=== PATIENT | male | born 1940 | race Two or more races ===

== ENCOUNTER 2023-02-18 11:32 | Inpatient (IN) | payer MEDICARE, OTHER ==
[2023-02-18] VITALS (30 sets, daily range): BP systolic 99–149; BP diastolic 51–80
[~2023-02-18] VITALS: Ht 175.3 cm; Wt 97.7 kg
[2023-02-18] MEDS ORDERED: ACCU-CHEK COMFORT CURVE STRIP VI ONE (12:00)
[2023-02-18 12:43] LABS: Basophils # (auto) 0.1 10 ^3/uL (0-0.2); Basophils % (auto) 1.3 % (0.0-2.0); Eosinophils # (auto) 0.3 10 ^3/uL (0-0.8); Eosinophils % (auto) 4.2 % (0.0-7.0); Hemoglobin 14.9 g/dL (13.5-17.5); Lymphocytes # (auto) 2.1 10 ^3/uL (0.4-5.4); Mean Corpuscular Hemoglobin 31.4 pg (28.0-32.0); Mean Corpuscular Hgb Conc. 33.8 g/dL (32.0-36.0); Mean Corpuscular Volume 92.8 fL (80.0-100.0); Monocytes # (auto) 0.5 10 ^3/uL (0-1.3); Monocytes % (auto) 7.2 % (0.0-12.0); Neutrophils # (auto) 4.5 10 ^3/uL (1.6-8.6); Neutrophils % (auto) 59.3 % (37.0-80.0); Red Blood Cells 4.74 10^6/uL (4.5-5.90); Red Cell Distribution Width 13.9 % (11.8-14.3); White Blood Cell 7.5 10^3/uL (4.4-10.8)
[2023-02-18] MEDS ORDERED: PROMETHAZINE HCL 25 MG/ML 1ML IV ONE (13:00)
[2023-02-18 13:17] LABS: Potassium 3.6 mmol/L (3.5-5.1)
[2023-02-18 13:21] LABS: Albumin 3.3 g/dL (3.4-5.0); BUN/Creatinine Ratio 14.6 (10.0-20.0); Calcium 8.4 mg/dL (8.5-10.1)
[2023-02-18 13:24] LABS: Bilirubin, Total 0.7 mg/dL (0.2-1.0); Total Protein 6.3 g/dL (6.4-8.2)
[2023-02-18 13:28] LABS: Acetaminophen < 2.0 ug/mL (10-30); Salicylate < 1.7 mg/dL (2.8-20.0)
[2023-02-18] MEDS ORDERED: ROCURONIUM 10MG/ML 10ML VIAL IV ONE (13:30)
[2023-02-18] MEDS: fentaNYL Drip 2500mCg/250mlNS 250 ML IV SCH (13:30)
[2023-02-18] MEDS ORDERED: MIDAZOLAM DRIP 50 mg/50mL 50 ML IV SCH (13:30)
[2023-02-18] MEDS ORDERED: ETOMIDATE (2MG/ML) 20ML VIAL IV ONE ×2 (13:30→14:00)
[2023-02-18] MEDS ORDERED: SUCCINYLCHOLINE CHLORIDE 20 MG/ML 10ML VIAL IV ONE (13:30)
[2023-02-18] MEDS ORDERED: MIDAZOLAM DRIP 50 mg/50mL 50 ML IV ONE (13:37)
[2023-02-18] MEDS: MIDAZOLAM DRIP 50 mg/50mL 50 ML IV SCH ×2 (13:56→22:52)
[2023-02-18 14:32] LABS: Urine Bacteria NONE SEEN /hpf (None Seen); Urine Blood TRACE /uL (Negative); Urine Mucus FEW (None Seen); Urine Specific Gravity 1.016 (1.001-1.035); Urine WBC 1 /hpf (0 - 3)
[2023-02-18 14:56] LABS: Alcohol, Urine < 3.0 mg/dL (0-10); Amphetamine Screen, Urine NEGATIVE (NEGATIVE); Barbiturate Scree,Urine NEGATIVE (NEGATIVE); Benzodiazephine Screen, Urine POSITIVE (NEGATIVE); Cannabinoid Screen, Urine NEGATIVE (NEGATIVE); Cocaine Screen, Urine NEGATIVE (NEGATIVE); Opiate Scree,Urine NEGATIVE (NEGATIVE); Phencyclidine Screen, Urine NEGATIVE (NEGATIVE)
[2023-02-18] MEDS ORDERED: AMLO1TAB22 PO (16:39)
[2023-02-18] MEDS ORDERED: ALLO100T PO (16:39)
[2023-02-18] MEDS ORDERED: ALPR0.255 PO (16:39)
[2023-02-18] MEDS ORDERED: HYDR-3682 PO (16:39)
[2023-02-18] MEDS ORDERED: LOSA50TA46 PO (16:39)
[2023-02-18] MEDS ORDERED: OMEP1CAP70 PO (16:39)
[2023-02-18] MEDS ORDERED: CITA-73 PO (16:39)
[2023-02-18] MEDS ORDERED: ATOR40TA52 PO (16:39)
[2023-02-18] MEDS ORDERED: BUPR150T18 PO (16:39)
[2023-02-18] MEDS ORDERED: LEV25T PO (16:39)
[2023-02-18] MEDS ORDERED: SODIUM CHLORIDE 0.9% 1,000 ML IV SCH (16:45)
[2023-02-18] MEDS: SODIUM CHLORIDE 0.9% 1,000 ML IV SCH (19:45)
[2023-02-19] VITALS (105 sets, daily range): BP systolic 101–140; BP diastolic 50–74
[2023-02-19] MEDS: fentaNYL Drip 2500mCg/250mlNS 250 ML IV SCH (01:13)
[2023-02-19] MEDS: MIDAZOLAM DRIP 50 mg/50mL 50 ML IV SCH ×5 (03:46→22:25)
[2023-02-19 04:28] LABS: Basophils # (auto) 0 10 ^3/uL (0-0.2); Basophils % (auto) 0.2 % (0.0-2.0); Eosinophils # (auto) 0.1 10 ^3/uL (0-0.8); Eosinophils % (auto) 0.8 % (0.0-7.0); Hematocrit 41.7 % (41.0-53.0); Hemoglobin 14.3 g/dL (13.5-17.5); Lymphocytes # (auto) 1.8 10 ^3/uL (0.4-5.4); Lymphocytes % (auto) 13.7 % (10.0-50.0); Mean Corpuscular Hemoglobin 32.1 pg (28.0-32.0); Mean Corpuscular Hgb Conc. 34.3 g/dL (32.0-36.0); Mean Corpuscular Volume 93.5 fL (80.0-100.0); Monocytes # (auto) 1.2 10 ^3/uL (0-1.3); Monocytes % (auto) 9.2 % (0.0-12.0); Neutrophils # (auto) 9.9 10 ^3/uL (1.6-8.6); Neutrophils % (auto) 76.1 % (37.0-80.0); Nucleated Red Blood Cells % 0.1 %; Red Blood Cells 4.46 10^6/uL (4.5-5.90); Red Cell Distribution Width 13.8 % (11.8-14.3)
[2023-02-19 04:32] LABS: Potassium 4.3 mmol/L (3.5-5.1)
[2023-02-19 04:35] LABS: Albumin 3.2 g/dL (3.4-5.0); BUN/Creatinine Ratio 18.3 (10.0-20.0)
[2023-02-19 04:38] LABS: Total Protein 6.1 g/dL (6.4-8.2)
[2023-02-19] MEDS: LEVOTHYROXINE SODIUM 25 MCG TAB PO SCH (06:25)
[2023-02-19] MEDS: amLODIPine BESYLATE 5 MG TAB PO SCH (10:00)
[2023-02-19] MEDS: LOSARTAN POTASSIUM 50 MG TAB PO SCH (10:00)
[2023-02-19] MEDS: SODIUM CHLORIDE 0.9% 1,000 ML IV SCH ×2 (10:38→22:25)
[2023-02-19] MEDS: PANTOPRAZOLE 40 MG/10 ML VIAL INJ IV SCH (10:38)
[2023-02-19] MEDS: ENOXAPARIN SOD 40 MG/0.4 ML SYRINGE SC SCH (10:39)
[2023-02-19] MEDS: ATORVASTATIN 20 MG TAB PO SCH (10:40)
[2023-02-19] MEDS: CITALOPRAM HYDROBR 20 MG TAB PO SCH (10:40)
[2023-02-19] MEDS: ALLOPURINOL 100 MG TAB PO SCH (10:40)
[2023-02-20] VITALS (103 sets, daily range): BP systolic 100–142; BP diastolic 47–99
[2023-02-20] MEDS: LEVOTHYROXINE SODIUM 25 MCG TAB PO SCH (06:33)
[2023-02-20] MEDS: LOSARTAN POTASSIUM 50 MG TAB PO SCH (07:45)
[2023-02-20] MEDS: amLODIPine BESYLATE 5 MG TAB PO SCH (07:45)
[2023-02-20] MEDS: ENOXAPARIN SOD 40 MG/0.4 ML SYRINGE SC SCH (08:53)
[2023-02-20] MEDS: ATORVASTATIN 20 MG TAB PO SCH (08:53)
[2023-02-20] MEDS: MIDAZOLAM DRIP 50 mg/50mL 50 ML IV SCH (08:53)
[2023-02-20] MEDS: PANTOPRAZOLE 40 MG/10 ML VIAL INJ IV SCH (08:53)
[2023-02-20] MEDS: ALLOPURINOL 100 MG TAB PO SCH (08:54)
[2023-02-20] MEDS: CITALOPRAM HYDROBR 20 MG TAB PO SCH (08:54)
[2023-02-20] MEDS: SODIUM CHLORIDE 0.9% 1,000 ML IV SCH (11:45)
[2023-02-20] MEDS: fentaNYL Drip 2500mCg/250mlNS 250 ML IV SCH ×2 (13:30→23:08)
[2023-02-21] VITALS (80 sets, daily range): BP systolic 107–145; BP diastolic 49–76
[2023-02-21] MEDS: SODIUM CHLORIDE 0.9% 1,000 ML IV SCH ×2 (01:05→12:21)
[2023-02-21 04:49] LABS: Albumin 2.4 g/dL (3.4-5.0); BUN/Creatinine Ratio 29.1 (10.0-20.0); Potassium 3.9 mmol/L (3.5-5.1)
[2023-02-21 04:50] LABS: Basophils # (auto) 0 10 ^3/uL (0-0.2); Basophils % (auto) 0.5 % (0.0-2.0); Eosinophils # (auto) 0.3 10 ^3/uL (0-0.8); Eosinophils % (auto) 2.8 % (0.0-7.0); Hematocrit 37.1 % (41.0-53.0); Hemoglobin 12.9 g/dL (13.5-17.5); Lymphocytes # (auto) 1.8 10 ^3/uL (0.4-5.4); Lymphocytes % (auto) 18.2 % (10.0-50.0); Mean Corpuscular Hemoglobin 32.6 pg (28.0-32.0); Mean Corpuscular Hgb Conc. 34.8 g/dL (32.0-36.0); Mean Corpuscular Volume 93.8 fL (80.0-100.0); Monocytes % (auto) 10.7 % (0.0-12.0); Neutrophils # (auto) 6.5 10 ^3/uL (1.6-8.6); Neutrophils % (auto) 67.8 % (37.0-80.0); Nucleated Red Blood Cells % 0.1 %; Red Blood Cells 3.95 10^6/uL (4.5-5.90); Red Cell Distribution Width 14.2 % (11.8-14.3); White Blood Cell 9.6 10^3/uL (4.4-10.8)
[2023-02-21 04:52] LABS: Total Protein 5.6 g/dL (6.4-8.2)
[2023-02-21] MEDS: LEVOTHYROXINE SODIUM 25 MCG TAB PO SCH (06:56)
[2023-02-21] MEDS: amLODIPine BESYLATE 5 MG TAB PO SCH (07:15)
[2023-02-21] MEDS: LOSARTAN POTASSIUM 50 MG TAB PO SCH (07:15)
[2023-02-21] MEDS: MIDAZOLAM DRIP 50 mg/50mL 50 ML IV SCH ×2 (07:16→15:49)
[2023-02-21] MEDS: ENOXAPARIN SOD 40 MG/0.4 ML SYRINGE SC SCH (07:39)
[2023-02-21] MEDS: CITALOPRAM HYDROBR 20 MG TAB PO SCH (07:39)
[2023-02-21] MEDS: PANTOPRAZOLE 40 MG/10 ML VIAL INJ IV SCH (07:39)
[2023-02-21] MEDS: ALLOPURINOL 100 MG TAB PO SCH (07:40)
[2023-02-21] MEDS: ATORVASTATIN 20 MG TAB PO SCH (07:40)
[2023-02-22] VITALS (27 sets, daily range): BP systolic 120–161; BP diastolic 53–83
[2023-02-22] MEDS: SODIUM CHLORIDE 0.9% 1,000 ML IV SCH ×2 (03:45→06:19)
[2023-02-22] MEDS: LEVOTHYROXINE SODIUM 25 MCG TAB PO SCH (06:44)
[2023-02-22] MEDS ORDERED: FUROSEMIDE 20 MG TAB PO ONE (09:15)
[2023-02-22] MEDS: PANTOPRAZOLE 40 MG/10 ML VIAL INJ IV SCH (09:56)
[2023-02-22] MEDS: ENOXAPARIN SOD 40 MG/0.4 ML SYRINGE SC SCH (09:56)
[2023-02-22] MEDS: LOSARTAN POTASSIUM 50 MG TAB PO SCH (09:57)
[2023-02-22] MEDS: ALLOPURINOL 100 MG TAB PO SCH (09:57)
[2023-02-22] MEDS: amLODIPine BESYLATE 5 MG TAB PO SCH (09:57)
[2023-02-22] MEDS: CITALOPRAM HYDROBR 20 MG TAB PO SCH (09:57)
[2023-02-22] MEDS: ATORVASTATIN 20 MG TAB PO SCH (22:14)
[2023-02-23 05:00] VITALS: BP 150/78
[2023-02-23] MEDS: LEVOTHYROXINE SODIUM 25 MCG TAB PO SCH (06:24)
[2023-02-23 06:35] LABS: BUN/Creatinine Ratio 31.1 (10.0-20.0); Calcium 8.4 mg/dL (8.5-10.1); Potassium 3.3 mmol/L (3.5-5.1)
[2023-02-23 06:56] LABS: Basophils # (auto) 0 10 ^3/uL (0-0.2); Basophils % (auto) 0.4 % (0.0-2.0); Eosinophils # (auto) 0.2 10 ^3/uL (0-0.8); Eosinophils % (auto) 2.9 % (0.0-7.0); Hematocrit 37.8 % (41.0-53.0); Hemoglobin 13.4 g/dL (13.5-17.5); Lymphocytes # (auto) 1.5 10 ^3/uL (0.4-5.4); Lymphocytes % (auto) 19.4 % (10.0-50.0); Mean Corpuscular Hemoglobin 32.5 pg (28.0-32.0); Mean Corpuscular Hgb Conc. 35.5 g/dL (32.0-36.0); Mean Corpuscular Volume 91.7 fL (80.0-100.0); Monocytes # (auto) 0.8 10 ^3/uL (0-1.3); Monocytes % (auto) 10.9 % (0.0-12.0); Neutrophils # (auto) 5.1 10 ^3/uL (1.6-8.6); Neutrophils % (auto) 66.4 % (37.0-80.0); Red Blood Cells 4.12 10^6/uL (4.5-5.90); Red Cell Distribution Width 13.6 % (11.8-14.3); White Blood Cell 7.7 10^3/uL (4.4-10.8)
[2023-02-23 09:00] VITALS: BP 158/76
[2023-02-23] MEDS ORDERED: POTASSIUM EFFERVESENT TAB 25 MEQ PO ONE (09:15)
[2023-02-23] MEDS ORDERED: FUROSEMIDE 20 MG/2 ML VIAL IV ONE (09:15)
[2023-02-23] MEDS ORDERED: PANTOPRAZOLE 40 MG TAB PO SCH (10:00)
[2023-02-23] MEDS: amLODIPine BESYLATE 5 MG TAB PO SCH (10:42)
[2023-02-23] MEDS: ENOXAPARIN SOD 40 MG/0.4 ML SYRINGE SC SCH (10:42)
[2023-02-23] MEDS: ALLOPURINOL 100 MG TAB PO SCH (10:43)
[2023-02-23] MEDS: CITALOPRAM HYDROBR 20 MG TAB PO SCH (10:43)
[2023-02-23] MEDS: LOSARTAN POTASSIUM 50 MG TAB PO SCH (10:44)
[2023-02-23 13:00] VITALS: BP 138/79
[2023-02-23 16:54] VITALS: BP 144/74
[2023-02-23] MEDS: ATORVASTATIN 20 MG TAB PO SCH (21:29)
[2023-02-24 05:00] VITALS: BP 147/86
[2023-02-24] MEDS ORDERED: ACETAMINOPHEN 325 MG TAB PO PRN (05:45)
[2023-02-24] MEDS ORDERED: guaiFENesin-DM 100/10mg/5ml SYR PO PRN (05:45)
[2023-02-24] MEDS: LEVOTHYROXINE SODIUM 25 MCG TAB PO SCH (05:56)
[2023-02-24] MEDS: LOSARTAN POTASSIUM 50 MG TAB PO SCH (09:28)
[2023-02-24] MEDS: ALLOPURINOL 100 MG TAB PO SCH (09:28)
[2023-02-24] MEDS: CITALOPRAM HYDROBR 20 MG TAB PO SCH (09:28)
[2023-02-24] MEDS: amLODIPine BESYLATE 5 MG TAB PO SCH (09:29)
[2023-02-24] MEDS: ENOXAPARIN SOD 40 MG/0.4 ML SYRINGE SC SCH (09:29)
[2023-02-24 13:00] VITALS: BP 111/67
[2023-02-24 14:55] VITALS: BP 132/78
== END 2023-02-24 16:42 | disposition home health service (06) | DRG 917 ==
LOC: EDBD 11:32 → ER 11:32 → TELE 16:39 → ICU WEST 17:44 → CENTRAL 02-22 21:30
PROVIDERS: ADMIT Nurse Practitioner Family; ATTEND Nurse Practitioner Acute Care
PROC: 5A1945Z Respiratory Ventilation, 24-96 Consecutive Hours (ICD-10-PCS; principal; 2023-02-18)
PROC: 0BH17EZ Insertion of Endotracheal Airway into Trachea, Via Natural or Artificial Opening (ICD-10-PCS; 2023-02-18)
DX: T43.291A Poisoning by other antidepressants, accidental (unintentional), initial encounter (principal); G92.8 Other toxic encephalopathy; J96.01 Acute respiratory failure with hypoxia; J98.11 Atelectasis; I10 Essential (primary) hypertension; F32.A Depression, unspecified; M10.9 Gout, unspecified; E03.9 Hypothyroidism, unspecified; E78.5 Hyperlipidemia, unspecified; F41.9 Anxiety disorder, unspecified; Z93.0 Tracheostomy status; Y92.89 Other specified places as the place of occurrence of the external cause
CPT/HCPCS: 31500; 36415; 36600; 51702; 71045; 80048; 80053; 80307; 80329; 81001; 82805; 82962; 85025; 87070; 87081; 87205; 93005; 94002; 94003; 96360; 96361; 97110; 97116; 97530; 99152; C9113; G0378; J0330; J2250